=== PATIENT | female | born 1955 | race Caucasian/White ===

== ENCOUNTER 2022-09-19 08:35 | Outpatient (CLI) | payer BC, SELFPAY ==
[2022-09-19 14:30] LABS: Vitamin D 25 Hydroxy* 28 ng/mL (30-80)
[2022-09-19 14:41] LABS: Albumin* 4.3 g/dL (3.3-5.0)
[2022-09-19 14:42] LABS: Chloride* 108 mmol/L (96-114); Potassium* 4.5 mmol/L (3.6-5.1); Sodium* 141 mmol/L (135-149)
[2022-09-19 14:44] LABS: Aspartate Amino Transferase* 41 U/L (12-35); Bilirubin Total* 0.8 mg/dL (0.1-1.5); Carbon Dioxide* 28 mmol/L (20-32); Cholesterol* 201 mg/dL (90-199); Creatinine* 0.9 mg/dL (0.5-1.5); Estimated Glomerular Filt Rate 70 ml/min
[2022-09-19 14:45] LABS: Alanine Aminotransferase* 59 U/L (4-35); Alkaline Phosphatase* 83 U/L (40-150); Blood Urea Nitrogen* 16 mg/dL (7-30); Calcium* 9.2 mg/dL (8.4-10.6); Glucose* 100 mg/dL (60-115); Triglycerides* 216 mg/dL (40-149)
[2022-09-19 14:46] LABS: HDL Cholesterol* 42 mg/dL (>=50); LDL Cholesterol Calculated 116 mg/dL (<100)
[2022-09-19 15:01] LABS: Hepatitis C Virus Antibody* Negative (Negative)
== END 2022-09-19 08:36 | disposition home or self-care (01) ==
PROVIDERS: PCP Family Medicine; Visit Provider Family Medicine
DX: Z00.00 Encounter for general adult medical examination without abnormal findings (principal); R53.83 Other fatigue; R63.5 Abnormal weight gain; Z13.21 Encounter for screening for nutritional disorder; Z11.59 Encounter for screening for other viral diseases; Z13.6 Encounter for screening for cardiovascular disorders
CPT/HCPCS: 80053; 80061; 82306; 84443; 86803

== ENCOUNTER 2023-12-04 08:26 | Outpatient (CLI) | payer BC, SELFPAY | END 2023-12-04 08:27 | disposition home or self-care (01) | LOC: NFLDREF 12-08 09:52 | PROVIDERS: PCP Family Medicine; Referring Provider Family Medicine; Visit Provider Physician Assistant Medical | DX: R79.89 Other specified abnormal findings of blood chemistry (principal); G25.81 Restless legs syndrome; H81.11 Benign paroxysmal vertigo, right ear; Z13.220 Encounter for screening for lipoid disorders; Z13.29 Encounter for screening for other suspected endocrine disorder | CPT/HCPCS: 80053; 80061; 82306; 82728; 83036; 84443 ==

== ENCOUNTER 2023-12-05 09:22 | Outpatient (RCR) | payer MEDICARE, SELFPAY ==
--- NOTE | 2023-12-06 10:07 | PT.OPE ---
[facility] Start: 12/05/23 15:18 Freq: Status: Active Protocol: Document 12/05/23 15:18 JOSEFA (Rec: 12/05/23 15:20 JOSEFA [id number]) E-signed By Ernst Mcnamara DPT, MS Physical Therapy Outpatient Evaluation Insurance Information Recert Due Date 03/04/24 Insurance Name Medicare B,[employer] Medical Diagnosis Benign paroxysmal vertigo, unspecified ear Treating Diagnosis R posterior canal BPPV, sensory disorganization and imbalance Subjective Subjective Patient is an otherwise healthy 68 y.o. female who presents to PT with c/o vertigo and imbalance of insidious origin getting out of bed upon waking ~2 months ago. Able to calm down sxs with rest with sxs improving in intensity since. Supine<> sit transfers and rolling to the R continue to cause room spinning dizziness sxs but slower movements help decrease sx intensity. No previous incidents of dizziness with chronic neck and TS stiffness with frequent sewing and quilting contributing to sxs. Denies visual or hearing changes. Pt hopes to resolve dizziness to improve safety with walking and daily activities. AGGR factors: fwd bending, supine<>sit transfers , rolling to R. ALLEV factors: slow movements, rest. Pain Comments Min-mod dizziness Current Work Status Retired Occupation Retired residential property tax appraiser Precautions Therapy Limitations/Systems Review Not Limited Objective Functional Test Performed & Score DHI: 38% 4-item DGI: 05/09 with mod path deviation and decreased velocity with horizontal and vertical head movements Assessment Assessment/Impression Testing revealed + R [place] testing BPPV testing with signs and symptoms consistent with R-posterior canalithiasis BPPV. Sensory disorganization found with balance testing consistent with peripheral vestibular dysfunction and overreliance on her vision for balance. All other neurological testing normal. He is a falls risk based on balance testing. Pt responded very well to CRM x 2 with negative re-testing and mild dizziness following. Pt will benefit from continued skilled PT to address these limitations. Primary Functional Limitations Fwd bending, supine<>sit transfers, rolling to R Plan of Care Rehabilitation Potential Excellent Physical Therapy Goals Therapy goals to be completed in 10 weeks: 1.Patient will display resolution of R posterior canalithiasis BPPV symptoms for >7 consecutive days to improve safety with household and daily activities. 2.Patient will display improved Romberg balance on foam surface with eyes closed >5 sec with minimal sway to decrease falls risk on compliant surfaces. 3.Pt will report >50% improvement in DHI to significantly improve cierra to daily activities. 4. Pt will be able to walk >8 minutes without an AD with a stable pattern to improve cardiovascular fitness. Coordination/Communication With Referral Source Treatment Plan/Direct Interventions Canalith Repositioning, Neuromuscular Re-ed, Therapeutic Exercises Frequency/Duration 1-2x per week for at least 6- 10 visits Patient Will Be Discharged From Therapy Completion of LTG(s),Skills Plateau,Independent w/HEP, Independently Progressing Evaluation Billing Untimed Code Treatment Minutes 28 Complexity Moderate Certification Information Initial Certification Date 12/05/23 Ending Certification Date 03/04/24 Provider Signature Shows Agreement With POC & Medical Necessity Physician Signature & Date Requested Please Sign/Date Here Physician Comment/Change : Physician NPI Number #
== END 2024-04-03 23:59 | disposition home or self-care (01) ==
PROVIDERS: PCP Family Medicine; Visit Provider Physician Assistant Medical
DX: H81.11 Benign paroxysmal vertigo, right ear (principal); R26.81 Unsteadiness on feet; R26.89 Other abnormalities of gait and mobility; Z51.89 Encounter for other specified aftercare
CPT/HCPCS: 97162

== ENCOUNTER 2024-12-24 09:38 | Outpatient (CLI) | payer MEDICARE, SELFPAY | END 2024-12-24 09:39 | disposition home or self-care (01) | LOC: NFLDREF 12-25 00:46 | PROVIDERS: PCP Physician Assistant Medical; Referring Provider Family Medicine; Visit Provider Physician Assistant Medical | DX: Z00.01 Encounter for general adult medical examination with abnormal findings (principal); G25.81 Restless legs syndrome; R79.0 Abnormal level of blood mineral; R79.89 Other specified abnormal findings of blood chemistry; R53.83 Other fatigue; E66.01 Morbid (severe) obesity due to excess calories; Z68.41 Body mass index [BMI] 40.0-44.9, adult; Z79.899 Other long term (current) drug therapy | CPT/HCPCS: 80053; 80061; 82306; 82607; 82728; 84443 ==